=== PATIENT | male | born 1995 | race Caucasian/White ===

== ENCOUNTER 2017-12-12 16:40 | Day surgery (SDC) | payer OTHER ==
[~2017-12-12] VITALS: Ht 188 cm; Wt 109.8 kg
--- OUTSIDE RECORDS SUMMARY | 2017-12-12 16:45 | XMS REPORT ---
Author Author [employer] [facility] Medical Staff Organization [facility] Address [address], [place] [address] Phone [phone] Care Team Providers Care Insulation Worker Interior Surface Name Role Phone JUAN ROTH MD PP [phone] Summary purpose TRANSITION OF CARE AUTO GENERATION Chief Complaint and Reason for Visit Admit Diagnosis 1 PHYSICAL THERAPY NEC Problem list No authorized problems tracked for continuity of care are available for this visit. Encounters No authorized problems tracked for encounter diagnoses are available for this visit. Medications No medications recorded for this patient visit Allergies, adverse reactions, alerts No allergy information is available for this patient. Immunizations No immunizations recorded for this patient visit Relevant diagnostic tests and/or laboratory data No authorized results are available for this patient visit History of procedures Procedure Code Code Type Description Date Performed Performing Physician 04122 CPT-4 PT EVALUATION 05-30-2014 [facility] 21601 CPT-4 ELECTRIC CURRENT THERAPY 05-30-2014 [facility] 47162 CPT-4 THERAPEUTIC EXERCISES 06-01-2014 [facility] 31349 CPT-4 ELECTRIC CURRENT THERAPY 06-01-2014 [facility] Functional status No functional or cognitive status observations are available for this visit. Vital signs No authorized vital signs are available for this visit. Social history No Social History or smoking status observations were recorded for this visit. ( Unknown if ever smoked.) Treatment Plan No treatment plan text is available for this visit. Hospital discharge instructions No discharge instruction text is available for this visit.
--- OUTSIDE RECORDS SUMMARY | 2017-12-12 16:45 | XMS REPORT ---
Author Author [employer] [facility] Medical Staff Organization [facility] Address [address], [place] [address] Phone [phone] Care Team Providers Care Cable Tool Operator Name Role Phone JUAN ROTH MD PP [phone] Summary purpose TRANSITION OF CARE AUTO GENERATION [...] for this patient visit History of procedures No procedures recorded for this patient visit. Functional status No functional or cognitive status [...]
--- OUTSIDE RECORDS SUMMARY | 2017-12-12 16:45 | XMS REPORT ---
Author Author [employer] [facility] Medical Staff Organization [facility] Address [address], [place] [address] Phone [phone] Care Team Providers Care Rn Advice Name Role Phone JUAN ROTH MD PP [phone] Summary purpose TRANSITION OF CARE AUTO GENERATION [...]
[2017-12-12] MEDS ORDERED: fentaNYL INJECTION 100 MCG/2 ML AMP IVP STA (16:46)
--- OUTSIDE RECORDS SUMMARY | 2017-12-12 16:46 | XMS REPORT ---
Author Author [employer] [facility] Medical Staff Organization [facility] Address [address] [place], [place] [address] Phone [phone] Care Team Providers Care Wind Turbine Blade Repair Technician Name Role Phone JUAN ROTH MD PP [phone] Summary purpose TRANSITION OF CARE AUTO GENERATION Chief Complaint and Reason for Visit Admit Diagnosis 1 PHYSICAL THERAPY NEC Problem list No authorized problems tracked for continuity of care are available for this visit. Encounters No authorized problems tracked for encounter diagnoses are available for this visit. Medications No home medications recorded for this patient visit Allergies, adverse reactions, alerts No allergy information is available for this patient. Immunizations No immunizations recorded for this patient visit Relevant diagnostic tests and/or laboratory data No authorized results are available for this patient visit History of procedures Procedure Code Code Type Description Date Performed Performing Physician 16924 CPT-4 PT EVALUATION 01-25-2014 REMY JAVIER 33704 CPT-4 ULTRASOUND THERAPY 01-25-2014 REMY JAVIER 77478 CPT-4 ULTRASOUND THERAPY 01-30-2014 REMY JAVIER 33672 CPT-4 ULTRASOUND THERAPY 02-01-2014 REMY JAVIER 52166 CPT-4 THERAPEUTIC EXERCISES 02-06-2014 REMY JAVIER 73616 CPT-4 ULTRASOUND THERAPY 02-06-2014 REMY JAVIER Functional status No functional or cognitive status [...]
--- OUTSIDE RECORDS SUMMARY | 2017-12-12 16:46 | XMS REPORT ---
Author Author [employer] [facility] Medical Staff Organization [facility] Address [address] [place], [place] [address] Phone [phone] Care Team Providers Care Java Lead Developer Name Role Phone JUAN ROTH MD PP [phone] Summary purpose TRANSITION OF CARE AUTO GENERATION [...]
--- OUTSIDE RECORDS SUMMARY | 2017-12-12 16:46 | XMS REPORT | Clinical Summary ---
Author Author Admin, ANNETTE Organization [facility] Address Unknown Phone Unavailable Allergies, Adverse Reactions, Alerts Allergy Name Reaction Description Start Date Severity Status Provider No Known Allergies Misa Ibarra MA Conditions or Problems Problem Name Problem Code Onset Date Status Entry Date Provider Comment Standard Description Annotate Neck sprain 847.0 Active Karl Hernandez MD Neck sprain U R I 465.9 Inactive Karl Hernandez MD Acute upper respiratory infections of unspecified site Cervical spasm 728.85 Active Mg Reina DO Spasm of muscle U R I ICD-465.9 Inactive Karl Hernandez MD 03/05 Medication List Medication Instructions Start Date Stop Date Generic Name NDC Status Provider Patient Instruction ZITHROMAX 250 MG TAB 2 po today, then 1 po q days 2-5 AZITHROMYCIN 58633586642 No Longer Active Karl Hernandez MD Active ZYRTEC ALLERGY 10 MG CAPS 1 po qd CETIRIZINE HCL 89124492892 Active Karl Hernandez MD Active IBUPROFEN 800 MG TABS take 1 tab po TID for neck pain and inflammation 01/06 IBUPROFEN 68407422612 No Longer Active Karl Hernandez MD Active IBUPROFEN 800 MG TABS take 1 tab po TID for neck pain and inflammation 01/06 IBUPROFEN 800 MG TABS 643539 IBUPROFEN Inactive ZITHROMAX 250 MG TAB 2 po today, then 1 po q days 2-5 ZITHROMAX 250 MG TAB [id number] AZITHROMYCIN Inactive Vital Signs Date Name Value Unit Range Description blood pressure, diastolic 66 mm[Hg] BP reardon blood pressure, systolic 116 mm[Hg] BP sys pulse rate E&M 51 /min Heart rate temperature E&M 98.3 [degF] Body temperature weight E&M 206 [lb_av] Weight Measured blood pressure, diastolic 73 mm[Hg] BP reardon blood pressure, systolic 119 mm[Hg] BP sys pulse rate E&M 67 /min Heart rate temperature E&M 98.2 [degF] Body temperature weight E&M 210.50 [lb_av] Weight Measured blood pressure, diastolic 78 mm[Hg] BP reardon blood pressure, systolic 134 mm[Hg] BP sys height E&M 73.5 [in_us] Bdy height pulse rate E&M 62 /min Heart rate temperature E&M 97.8 [degF] Body temperature weight E&M 209 [lb_av] Weight Measured Encounters Code Encounter Date Provider Facility CPT-46528 Level 3 Est. Patient 15:20:07 CDT Mg Reina DO [facility] CPT-78998 Level 3 Est. 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
--- OUTSIDE RECORDS SUMMARY | 2017-12-12 16:46 | XMS REPORT ---
Author Author [employer] [facility] Medical Staff Organization [facility] Address [address] [place], [place] [address] Phone [phone] Care Team Providers Care Casing Blower Name Role Phone JUAN ROTH MD PP [phone] Summary purpose TRANSITION OF CARE AUTO GENERATION [...]
--- OUTSIDE RECORDS SUMMARY | 2017-12-12 16:46 | XMS REPORT ---
Author Author [facility] [employer] [facility] Medical Staff Organization [facility] Address [address] [place], [place] [address] Phone [phone] Care Team Providers Care Supervisor Telephone Information Name Role Phone JUAN ROTH MD PP [phone] Summary purpose TRANSITION OF CARE AUTO GENERATION [...] Code Type Description Date Performed Performing Physician 09361 CPT-4 PT RE-EVALUATION 07-07-2014 [facility] 65934 CPT-4 ELECTRIC CURRENT THERAPY 07-07-2014 [facility] Functional status No functional or [...]
--- OUTSIDE RECORDS SUMMARY | 2017-12-12 16:46 | XMS REPORT ---
Author Author [email or web address] [facility] Medical Staff Organization [facility] Address [address] [place], [place] [address] Phone [phone] Care Team Providers Care Commissioner Of Officials Name Role Phone JUAN ROTH MD PP [phone] Summary purpose TRANSITION OF CARE AUTO GENERATION [...] Code Type Description Date Performed Performing Physician 09195 CPT-4 PT EVALUATION 05-30-2014 [facility] 24525 CPT-4 ELECTRIC CURRENT THERAPY 05-30-2014 [facility] 71855 CPT-4 THERAPEUTIC EXERCISES 06-01-2014 [facility] 52094 CPT-4 ELECTRIC CURRENT THERAPY 06-01-2014 [facility] [...]
--- OUTSIDE RECORDS SUMMARY | 2017-12-12 16:46 | XMS REPORT | Clinical Summary ---
Author Author Admin, ANNETTE Organization [facility] Address Unknown Phone Unavailable Allergies, Adverse [...] Active Mg Reina DO Spasm of muscle Ankle sprain, left 845.00 Active Mg Reina DO Unspecified site of ankle sprain U R I ICD-465.9 Inactive Karl Hernandez MD 03/05 Medication List Medication Instructions Start Date Stop Date Generic Name [facility] Status Provider Patient Instruction ZITHROMAX 250 MG TAB 2 po today, then 1 po q days 2-5 AZITHROMYCIN 16769052459 No Longer Active Karl Hernandez MD Active ZYRTEC ALLERGY 10 MG CAPS 1 po qd CETIRIZINE HCL 13637517421 Active Karl Hernandez MD Active IBUPROFEN 800 MG TABS take 1 tab po TID for neck pain and inflammation 01/06 IBUPROFEN 88280986666 No Longer Active Karl Hernandez MD Active IBUPROFEN 800 MG TABS take 1 tab po TID for neck pain and inflammation 01/06 IBUPROFEN 800 MG TABS 069305 IBUPROFEN Inactive ZITHROMAX 250 MG TAB 2 po today, then 1 po q days 2-5 ZITHROMAX 250 MG TAB 4029604 AZITHROMYCIN Inactive Vital Signs Date Name Value Unit Range Description blood pressure, diastolic 67 mm[Hg] BP reardon blood pressure, systolic 116 mm[Hg] BP sys pulse rate E&M 61 /min Heart rate temperature E&M 97.8 [degF] Body temperature weight E&M 211 [lb_av] Weight Measured blood pressure, diastolic 66 mm[Hg] BP reardon [...] Measured Encounters Code Encounter Date Provider Facility CPT-29254 Level 3 Est. Patient 14:47:55 CDT Mg Reina [facility] CPT-60978 Level 3 Est. Patient 15:20:07 CDT Mg Reina [facility] CPT-05929 Level 3 Est. 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
--- OUTSIDE RECORDS SUMMARY | 2017-12-12 16:46 | XMS REPORT | Clinical Summary ---
Author Author Admin, ANNETTE Organization [facility] Address Unknown Phone Unavailable Allergies, Adverse Reactions, [...] Instructions Start Date Stop Date Generic Name [facility] Status Provider Patient Instruction ZITHROMAX 250 MG TAB 2 po today, then 1 po q days 2-5 AZITHROMYCIN 54295896757 No Longer Active Karl Hernandez MD Active ZYRTEC ALLERGY 10 MG CAPS 1 po qd CETIRIZINE HCL 48645606919 Active Karl Hernandez MD Active IBUPROFEN 800 MG TABS take 1 tab po TID for neck pain and inflammation 01/06 IBUPROFEN 15005805635 No Longer Active Karl Hernandez MD Active IBUPROFEN 800 MG TABS take 1 tab po TID for neck pain and inflammation 01/06 IBUPROFEN 800 MG TABS 063238 IBUPROFEN Inactive ZITHROMAX 250 MG TAB 2 po today, then 1 po q days 2-5 ZITHROMAX 250 MG TAB 9702278 AZITHROMYCIN Inactive Vital Signs Date Name Value [...] Measured Encounters Code Encounter Date Provider Facility CPT-35677 Level 3 Est. Patient 14:47:55 CDT Mg Reina [facility] CPT-46608 Level 3 Est. Patient 15:20:07 CDT Mg Reina [facility] CPT-88173 Level 3 Est. 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
--- OUTSIDE RECORDS SUMMARY | 2017-12-12 16:46 | XMS REPORT ---
Author Author [facility] Medical Staff Organization [facility] Address [address] [place], [place] [address] Phone [phone] Care Team Providers Care Interactive Media Project Manager Name Role Phone JUAN ROTH MD PP [phone] Summary purpose TRANSITION OF CARE AUTO GENERATION [...] Code Type Description Date Performed Performing Physician 45016 CPT-4 ELECTRIC CURRENT THERAPY 07-07-2014 [facility] 66394 CPT-4 PT RE-EVALUATION 07-07-2014 [facility] Functional status No functional [...]
[2017-12-12] MEDS ORDERED: fentaNYL INJECTION 100 MCG/2 ML AMP ONE ×3 (16:47→19:55)
--- OUTSIDE RECORDS SUMMARY | 2017-12-12 16:47 | XMS REPORT | Continuity of Care Document ---
Demographics x Preferred Language Unknown Marital Status Unknown Oriental Orthodox Affiliation Unknown Race Unknown Ethnic Group Unknown Author Author [facility] Organization [facility] Address Unknown Phone Unavailable Allergies There is no data. Medications There is no data. Problems Date Dx Coded Attending Type Code Diagnosis Diagnosed By 10/23/2013 [facility] 843.8 SPRAIN HIP THIGH NEC 10/23/2013 [facility] V57.1 PHYSICAL THERAPY NEC 10/29/2013 [facility] 843.8 SPRAIN HIP THIGH NEC 10/29/2013 [facility] V57.1 PHYSICAL THERAPY NEC 11/04/2013 [facility] 843.8 SPRAIN HIP THIGH NEC 11/04/2013 [facility] V57.1 PHYSICAL THERAPY NEC 02/22/2014 REMY JAVIER 726.71 ACHILLES TENDINITIS 02/22/2014 REMY JAVIER V57.1 PHYSICAL THERAPY NEC 06/22/2014 [facility] 843.8 SPRAIN HIP THIGH NEC 06/22/2014 [facility] E928.9 ACCIDENT NOS 06/22/2014 [facility] V57.1 PHYSICAL THERAPY NEC 07/10/2014 [facility] 843.8 SPRAIN HIP THIGH NEC 07/10/2014 [facility] E928.9 ACCIDENT NOS 07/10/2014 [facility] V57.1 PHYSICAL THERAPY NEC 07/23/2014 [facility] 843.8 SPRAIN HIP THIGH NEC 07/23/2014 [facility] V57.1 PHYSICAL THERAPY NEC 08/02/2014 [facility] 843.8 SPRAIN HIP THIGH NEC 08/02/2014 [facility] V57.1 PHYSICAL THERAPY NEC Procedures Code Description [place] [address] PT EVALUATION 02/22/2014 95156 ULTRASOUND THERAPY 02/22/2014 44529 THERAPEUTIC EXERCISES 02/22/2014 36910 PT EVALUATION 06/22/2014 13498 ELECTRIC CURRENT THERAPY 06/22/2014 76217 THERAPEUTIC EXERCISES 06/22/2014 65864 PT RE-EVALUATION 07/23/2014 29839 ELECTRIC CURRENT THERAPY 07/23/2014 Results There is no data. Encounters ACCT No. Visit Date/Time Discharge Status Pt. Type Provider Facility Loc./Unit Complaint [id number] 07/24/2014 00:01:00 08/02/2014 12:07:00 DIS Outpatient [facility] PT [id number] 07/07/2014 12:30:00 07/23/2014 23:59:00 DIS Outpatient [facility] PT [id number] 06/23/2014 00:01:00 07/10/2014 11:04:00 DIS Outpatient [facility] PT [id number] 05/30/2014 09:55:00 06/22/2014 23:59:00 DIS Outpatient [facility] PT [id number] 02/23/2014 00:01:00 02/23/2014 23:59:59 CLS Outpatient REMY JAVIER [facility] PT [id number] 01/25/2014 13:42:00 02/22/2014 23:59:00 DIS Outpatient REMY JAVIER [facility] PT [id number] 10/24/2013 00:01:00 11/04/2013 13:44:00 DIS Outpatient [facility] PT [id number] 10/29/2013 01:21:00 10/29/2013 02:08:00 DIS Emergency LEANDRA ANTHONY [facility] EMR [id number] 09/23/2013 00:01:00 10/23/2013 23:59:00 DIS Outpatient [facility] PT [id number] 08/31/2013 15:44:00 08/31/2013 23:59:59 CLS Outpatient [facility] PT [id number] 08/31/2013 09:53:00 08/31/2013 09:53:00 DIS Outpatient [facility] RAD [id number] 07/24/2014 00:08:54 ACT Document Registration
--- OUTSIDE RECORDS SUMMARY | 2017-12-12 16:47 | XMS REPORT | Clinical Summary ---
Author Author Admin, ANNETTE Organization [facility] Address Unknown Phone Unavailable Allergies, Adverse Reactions, Alerts Allergy Name Reaction Description Start Date Severity Status Provider No Known Allergies Ioana Ott LPN Conditions or Problems Problem Name Problem Code Onset Date Status Entry Date Provider Comment Standard Description Annotate Neck sprain 847.0 Active Karl Hernandez MD Neck sprain U R I 465.9 Inactive Karl Hernandez MD Acute upper respiratory infections of unspecified site Cervical spasm 728.85 Active Mg Reina DO Spasm of muscle Ankle sprain, left 845.00 Resolved Edd Bryan MD Unspecified site of ankle sprain Achilles tendinitis 726.71 Active Edd Bryan MD Achilles bursitis or tendinitis U R I ICD-465.9 Inactive Karl Hernandez MD 03/05 Ankle sprain, left ICD-845.00 Inactive Edd Bryan MD Medication List Medication Instructions Start Date Stop Date Generic Name [facility] Status Provider Patient Instruction DICLOFENAC SODIUM 75 MG TBEC 1 tablet by mouth twice daily PRN Pain DICLOFENAC SODIUM 89621843918 Active Edd Bryan MD Active MULTIVITAMIN GUMMIES ADULT CHEW Take one by mouth daily MULTIPLE VITAMINS-MINERALS 54837118672 Active Edd Bryan MD Active ZITHROMAX 250 MG TAB 2 po today, then 1 po q days 2-5 AZITHROMYCIN 21188519961 No Longer Active Karl Hernandez MD Active ZYRTEC ALLERGY 10 MG CAPS 1 po qd CETIRIZINE HCL 03609208585 Active Karl Hernandez MD Active IBUPROFEN 800 MG TABS take 1 tab po TID for neck pain and inflammation 01/06 IBUPROFEN 51995966776 No Longer Active Karl Hernandez MD Active IBUPROFEN 800 MG TABS take 1 tab po TID for neck pain and inflammation 01/06 IBUPROFEN 800 MG TABS 196364 IBUPROFEN Inactive ZITHROMAX 250 MG TAB 2 po today, then 1 po q days 2-5 ZITHROMAX 250 MG TAB 6077916 AZITHROMYCIN Inactive Vital Signs Date Name Value Unit Range Description blood pressure, diastolic - 8462-4 70 mm[Hg] BP reardon blood pressure, systolic - 8480-6 115 mm[Hg] BP sys pulse rate E&M - 8867-4 54 /min Heart rate temperature E&M 98.5 [degF] Body temperature weight E&M - 3141-9 219.5 [lb_av] Weight Measured blood pressure, diastolic - 8462-4 67 mm[Hg] BP reardon blood pressure, systolic - 8480-6 116 mm[Hg] BP sys pulse rate E&M - 8867-4 61 /min Heart rate temperature E&M 97.8 [degF] Body temperature weight E&M - 3141-9 211 [lb_av] Weight Measured blood pressure, diastolic - 8462-4 66 mm[Hg] BP reardon blood pressure, systolic - 8480-6 116 mm[Hg] BP sys pulse rate E&M - 8867-4 51 /min Heart rate temperature E&M 98.3 [degF] Body temperature weight E&M - 3141-9 206 [lb_av] Weight Measured blood pressure, diastolic - 8462-4 73 mm[Hg] BP reardon blood pressure, systolic - 8480-6 119 mm[Hg] BP sys pulse rate E&M - 8867-4 67 /min Heart rate temperature E&M 98.2 [degF] Body temperature weight E&M - 3141-9 210.50 [lb_av] Weight Measured Encounters Code Encounter Date Provider Facility CPT-18466 Level 3 Est. Patient 16:37:12 ANALYSIS INTERNSHIP Edd Bryan MD [facility] CPT-23053 Level 3 Est. Patient 14:47:55 CDT Mg Reina [facility] CPT-67843 Level 3 Est. Patient 15:20:07 CDT Mg Reina [facility] CPT-87827 Level 3 Est. Patient 12:53:11 ANALYSIS INTERNSHIP Karl Hernandez MD [facility]
--- OUTSIDE RECORDS SUMMARY | 2017-12-12 16:47 | XMS REPORT ---
Author Author [employer] [facility] Medical Staff Organization [facility] Address [address] [place], [place] [address] Phone [phone] Care Team Providers Care Digital Media Representative Name Role Phone JUAN ROTH MD PP [phone] Summary purpose TRANSITION OF CARE AUTO GENERATION [...] Code Type Description Date Performed Performing Physician 02335 CPT-4 PT EVALUATION 01-25-2014 REMY JAVIER 82085 CPT-4 ULTRASOUND THERAPY 01-25-2014 REMY JAVIER 76370 CPT-4 ULTRASOUND THERAPY 01-30-2014 REMY JAVIER 36920 CPT-4 ULTRASOUND THERAPY 02-01-2014 REMY JAVIER 11722 CPT-4 THERAPEUTIC EXERCISES 02-06-2014 REMY JAVIER 44622 CPT-4 ULTRASOUND THERAPY 02-06-2014 REMY JAVIER Functional [...]
--- OUTSIDE RECORDS SUMMARY | 2017-12-12 16:47 | XMS REPORT | Clinical Summary ---
Author Author Admin, ANNETTE Organization [facility] Address Unknown Phone Unavailable Allergies, Adverse Reactions, [...] Instructions Start Date Stop Date Generic Name [facility] Status Provider Patient Instruction DICLOFENAC SODIUM 75 MG TBEC 1 tablet by mouth twice daily PRN Pain DICLOFENAC SODIUM 10908743418 Active Edd Bryan MD Active MULTIVITAMIN GUMMIES ADULT CHEW Take one by mouth daily MULTIPLE VITAMINS-MINERALS 84994121735 Active Edd Bryan MD Active ZITHROMAX 250 MG TAB 2 po today, then 1 po q days 2-5 AZITHROMYCIN 82958252699 No Longer Active Karl Hernandez MD Active ZYRTEC ALLERGY 10 MG CAPS 1 po qd CETIRIZINE HCL 95086073010 Active Karl Hernandez MD Active IBUPROFEN 800 MG TABS take 1 tab po TID for neck pain and inflammation 01/06 IBUPROFEN 29928479183 No Longer Active Karl Hernandez MD Active IBUPROFEN 800 MG TABS take 1 tab po TID for neck pain and inflammation 01/06 IBUPROFEN 800 MG TABS 523247 IBUPROFEN Inactive ZITHROMAX 250 MG TAB 2 po today, then 1 po q days 2-5 ZITHROMAX 250 MG TAB 6801659 AZITHROMYCIN Inactive Vital Signs Date Name Value [...] Measured Encounters Code Encounter Date Provider Facility CPT-16077 Level 3 Est. 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 Patient 14:47:55 CDT Mg Reina [facility] CPT-86167 Level 3 Est. Patient 15:20:07 CDT Mg Reina [facility] CPT-42912 Level 3 Est. 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
[2017-12-12 16:55] LABS: HEMOGLOBIN 16.1 G/DL (13.3-17.7); MEAN PLATELET VOLUME 10.7 FL (7.4-10.4); RED BLOOD COUNT 5.14 10^6/uL (4.35-5.85); RED CELL DISTRIBUTION WIDTH 12.5 % (10.0-14.5); WHITE BLOOD COUNT 7.7 10^3/uL (4.3-11.0)
--- NOTE | 2017-12-12 17:14 | ED Lower Extremity ---
General Stated Complaint: L FEMUR FX Source: patient Exam Limitations: no limitations History of Present Illness Date Seen by Provider: Dec 12, 2017 Time Seen by Provider: 16:40 Initial Comments Here with report of left femur pain and concerns of left femur fracture. 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 He believes his leg tangled in the other player's legs. He felt a pop to his left femur. He had immediate pain. There was deformity and shortening noted. Evaluated by the team doctor and EMS and brought here for further evaluation with concerns of left femur fracture. Denies other injury. Onset: just prior to arrival (approximately 30 minutes prior to arrival) Severity: moderate, severe Pain/Injury Location: left leg Method of Injury: direct blow Modifying Factors: Improves With Immobilization; Worse With Movement; Improves With Pain Medication Allergies and Home Medications Allergies Coded Allergies: No Known Drug Allergies (Unverified , 12/12/17) Patient Home Medication List Home Medication List Reviewed: Yes Review of Systems Constitutional: see HPI; No chills, No fever EENTM: no symptoms reported Respiratory: no symptoms reported Cardiovascular: no symptoms reported Gastrointestinal: no symptoms reported Genitourinary: no symptoms reported Musculoskeletal: see HPI, joint pain, muscle pain, muscle stiffness Skin: No change in color, No lesions Psychiatric/Neurological: Denies Numbness, Denies Paresthesia, Denies Tingling Past Vfsndsw-Kyuejx-Xovavh Hx Past Med/Social Hx: Reviewed Nursing Past Med/Soc Hx Patient Social History Alcohol Use: Denies Use Recreational Drug Use: No Smoking Status: Never a Smoker Recent Foreign Travel: No Contact w/Someone Who Travel: No Past Medical History Surgeries: Yes Orthopedic, Tonsillectomy Respiratory: No Cardiac: No Neurological: No Genitourinary: No Gastrointestinal: No Musculoskeletal: Yes Psychosocial: No Family Medical History Reviewed Nursing Family Hx No Pertinent Family Hx Physical Exam Vital Signs Capillary Refill : Height, Weight, BMI Height: '" Weight: lbs. oz. kg; BMI Method: General Appearance: WD/WN, mild distress HEENT: PERRL/EOMI, pharynx normal Neck: non-tender, full range of motion, supple Cardiovascular: regular rate, rhythm, no murmur Respiratory: lungs clear, normal breath sounds Gastrointestinal: non tender, soft Hips: bilateral hip non-tender, bilateral hip normal inspection, bilateral hip normal range of motion Legs: right leg non-tender, right leg normal inspection, right leg normal range of motion; left leg pain, left leg soft tissue tenderness, left leg swelling, left leg other (needed shaft femur deformity with shortening and significant pain) Knees: bilateral knee non-tender, bilateral knee normal inspection; right knee normal range of motion; bilateral knee no evidence of injury Ankles: bilateral ankle non-tender, bilateral ankle normal inspection, bilateral ankle normal range of motion, bilateral ankle no evidence of injury Feet: bilateral foot other (distal pulses intact bilateral) Neurologic/Psychiatric: alert, normal mood/affect, oriented x 3 Skin: normal color, warm/dry Progress/Results/Core Measures Results/Orders Lab Results Laboratory Tests Test 12/12/17 16:45 Range/Units White Blood Count 7.7 4.3-11.0 10^3/uL Red Blood Count 5.14 4.35-5.85 10^6/uL Hemoglobin 16.1 13.3-17.7 G/DL Hematocrit 44 40-54 % Mean Corpuscular Volume 86 80-99 FL Mean Corpuscular Hemoglobin 31 25-34 PG Mean Corpuscular Hemoglobin Concent 37 H 32-36 G/DL Red Cell Distribution Width 12.5 10.0-14.5 % Platelet Count 233 130-400 10^3/uL Mean Platelet Volume 10.7 H 7.4-10.4 FL My Orders Orders - JUSTYNA ALEGRE MD Cbc No Diff (12/12/17 16:46) Basic Metabolic Panel (12/12/17 16:46) Liver Panel (12/12/17 16:46) Alcohol (12/12/17 16:46) Ua Culture If Indicated (12/12/17 16:46) Type And Screen (12/12/17 16:46) Chest 1 View, Ap/Pa Only (12/12/17 16:46) Pelvis (12/12/17 16:46) End Tidal Co2 (12/12/17 16:46) Monitor-Rhythm Ecg Trace Only (12/12/17 16:46) Saline Lock/Iv-Start (12/12/17 16:46) Femur, Left, 2 Views (12/12/17 16:46) Fentanyl Injection (Sublimaze Injection (12/12/17 16:46) Fentanyl Injection (Sublimaze Injection (12/12/17 16:47) Progress Progress Note : Progress Note Seen and evaluated. Type II trauma activation due to mechanism and long bone injury. IV by EMS. EMS did give 100 g of fentanyl and 4 mg of Zofran for pain. Patient on long spine board. Transferred to bed. Rolled off the long spine board. ATLS exam performed. Distal pulses intact to both feet and equal and strong. Concerns about midshaft femur fracture. After radiological assessment verifies midshaft femur fracture. Patient placed in Hare traction splint which greatly reduced his pain and spasms associated with a fracture. Distal pulses remain intact after traction splint in place. Patient did receive another 100 g of fentanyl for pain. Labs, chest x-ray and pelvis x- ray performed. Dr. Hanks in the emergency department evaluating patient denies 1655. 1720: Patient to go to OR for femur fracture repair. Family informed the patient's bedside and agree with plan. Diagnostic Imaging Diagonstic Imaging: Xray Plain Films/CT/US/NM/MRI: chest Comments No acute findings Reviewed: Reviewed by Me Diagonstic Imaging: Xray Plain Films/CT/US/NM/MRI: pelvis Comments No acute fracture of the pelvis Reviewed: Reviewed by Me Diagonstic Imaging: Xray Plain Films/CT/US/NM/MRI: femur Comments Mid shaft femur fracture with displacement and secondary fragment Reviewed: Reviewed by Me Departure Communication (Admissions) Time/Spoke to Admitting Phy: 17:00 Impression Primary Impression: Left femoral shaft fracture Qualified Codes: S72.322A - Displaced transverse fracture of shaft of left femur, initial encounter for closed fracture Disposition: ADMITTED INPATIENT Condition: Stable Admissions Decision to Admit Reason: Admit from ER (Trauma) Decision to Admit/Date: Dec 12, 2017 Time/Decision to Admit Time: 17:00 JUSTYNA ALEGRE MD Dec 12, 2017 17:14
[2017-12-12 17:15] LABS: ALANINE AMINOTRANSFERASE 41 U/L (0-55); ALBUMIN 4.8 GM/DL (3.2-4.5); ALKALINE PHOSPHATASE 84 U/L (40-136); BILIRUBIN,DIRECT 0.3 MG/DL (0.0-0.3); BILIRUBIN,INDIRECT 0.4 MG/DL; BILIRUBIN,TOTAL 0.7 MG/DL (0.1-1.0); BUN/CREATININE RATIO 13; CALCIUM 9.9 MG/DL (8.5-10.1); CARBON DIOXIDE 22 MMOL/L (21-32); CHLORIDE 105 MMOL/L (98-107); CREATININE SERUM 1.51 MG/DL (0.60-1.30); GFR ESTIMATED 59; GLUCOSE 111 MG/DL (70-105); POTASSIUM 3.4 MMOL/L (3.6-5.0); SODIUM 142 MMOL/L (135-145); TOTAL PROTEIN 7.3 GM/DL (6.4-8.2)
--- NOTE | 2017-12-12 17:27 | Diagnostic Imaging Report ---
INDICATION: Trauma. EXAMINATION: Single view of the chest was obtained. FINDINGS: The heart size, mediastinal configuration, and pulmonary vascularity are within normal limits. There is no pleural effusion, pneumothorax, or pneumonia. The osseous structures are unremarkable. IMPRESSION: No acute cardiopulmonary abnormality. Dictated by: Dictated on workstation # [id number]
--- NOTE | 2017-12-12 17:28 | Diagnostic Imaging Report ---
INDICATION: Trauma. EXAMINATION: Four views of the left femur were obtained. FINDINGS: There is a comminuted fracture of the mid left femoral diaphysis. Fracture fragments are slightly displaced. Soft tissues are otherwise unremarkable. IMPRESSION: Comminuted fracture of the mid left femoral diaphysis. Dictated by: Dictated on workstation # [id number]
[2017-12-12] MEDS ORDERED: MIDAZOLAM 2 MG/2 ML (VERSED) VIAL ONE (17:35)
[2017-12-12] MEDS ORDERED: LIDOCAINE PF 2% 5 ML (XYLOCAINE) VIAL ONE (17:35)
[2017-12-12] MEDS ORDERED: DEXAMETHASONE 10 MG/ML (DECADRON) 1 ML VIAL ONE (17:35)
[2017-12-12] MEDS ORDERED: ONDANSETRON 4 MG/2 ML (SDV) Z0FRAN ONE (17:35)
[2017-12-12] MEDS ORDERED: proPOfol 200 MG/20 ML (DIPRIVAN) VIAL IV ONE ×2 (17:35→19:39)
[2017-12-12] MEDS ORDERED: SEVOFLURANE (ULTANE) 15 ML INHAL SOLN ONE ×10 (17:37→20:18)
--- NOTE | 2017-12-12 17:42 | Progress Note-Pre Operative ---
Pre-Operative Progress Note H&P Reviewed The H&P was reviewed, patient examined and no changes noted. Date Seen by Provider: Dec 12, 2017 Time Seen by Provider: 17:41 Date H&P Reviewed: Dec 12, 2017 Time H&P Reviewed: 17:41 Pre-Operative Diagnosis: left femur shaft fracture, closed, displaced DELORIS HSU MD Dec 12, 2017 17:41
--- NOTE | 2017-12-12 17:43 | Progress Note-Post Operative ---
Post-Operative Progess Note Surgeon (s)/Bulk Sugar Handler (s) Surgeon DELORIS HSU MD Bulk Sugar Handler: Damaso Agarwal Pre-Operative Diagnosis left femur shaft fracture, closed, displaced Post-Operative Diagnosis left femur shaft fracture, closed, displaced Procedure & Operative Findings Date of Procedure 12/12/17 Procedure Performed/Findings left femur intramedullary nail Anesthesia Type GETA Estimated Blood Loss Estimated blood loss (mL): 300 ml Specimens/Packing Specimens Removed none Packing: none DELORIS HSU MD Dec 12, 2017 17:43
--- OUTSIDE RECORDS SUMMARY | 2017-12-12 18:08 | XMS REPORT | Continuity of Care Document ---
Demographics x Preferred Language Unknown Marital Status Unknown Evangelical Affiliation Unknown Race Unknown Ethnic Group Unknown Author Author [facility] Organization [facility] Address Unknown Phone Unavailable Allergies There is [...] DELORIS HSU V57.1 PHYSICAL THERAPY NEC 07/23/2014 DELORIS HSU 843.8 SPRAIN HIP THIGH NEC 07/23/2014 DELORIS HSU V57.1 PHYSICAL THERAPY NEC 08/02/2014 DELORIS HSU 843.8 SPRAIN HIP THIGH NEC 08/02/2014 DELORIS HSU V57.1 PHYSICAL THERAPY NEC Procedures Code [place] [address] PT EVALUATION 02/22/2014 55219 ULTRASOUND THERAPY 02/22/2014 37130 THERAPEUTIC EXERCISES 02/22/2014 45222 PT EVALUATION 06/22/2014 17157 ELECTRIC CURRENT THERAPY 06/22/2014 95131 THERAPEUTIC EXERCISES 06/22/2014 58106 PT RE-EVALUATION 07/23/2014 03330 ELECTRIC CURRENT THERAPY 07/23/2014 Results There is no data. Encounters ACCT No. Visit Date/Time Discharge Status Pt. Type Provider Facility Loc./Unit Complaint [id number] 07/24/2014 00:01:00 08/02/2014 12:07:00 DIS Outpatient DELORIS HSU [facility] PT [id number] 07/07/2014 12:30:00 07/23/2014 23:59:00 DIS Outpatient DELORIS HSU [facility] PT [id number] 06/23/2014 00:01:00 07/10/2014 11:04:00 DIS Outpatient DELORIS HSU [facility] PT [id number] 05/30/2014 09:55:00 06/22/2014 23:59:00 DIS Outpatient DELORIS HSU [facility] PT [id number] 02/23/2014 00:01:00 02/23/2014 23:59:59 CLS Outpatient REMY JAVIER [facility] PT [id number] 01/25/2014 13:42:00 02/22/2014 23:59:00 DIS Outpatient REMY JAVIER [facility] PT [id number] 10/24/2013 00:01:00 11/04/2013 13:44:00 DIS Outpatient DELORIS HSU [facility] PT [id number] 10/29/2013 01:21:00 10/29/2013 02:08:00 DIS Emergency LEANDRA ANTHONY [facility] EMR [id number] 09/23/2013 00:01:00 10/23/2013 23:59:00 DIS Outpatient DELORIS HSU [facility] PT [id number] 08/31/2013 15:44:00 08/31/2013 23:59:59 CLS Outpatient DELORIS HSU [facility] PT [id number] 08/31/2013 09:53:00 08/31/2013 09:53:00 DIS Outpatient DELORIS HSU [facility] RAD [id number] 07/24/2014 00:08:54 ACT Document Registration
[2017-12-12] MEDS: LACTATED RINGERS 1,000 ML IV PRN ×3 (18:09→21:30)
[2017-12-12] MEDS ORDERED: ceFAZolin 1,000 MG/10 ML (ANCEF) VIAL ONE (18:35)
[2017-12-12] MEDS ORDERED: BUPIVACAINE 0.5% 30 ML (SENSORCAINE) VIAL ONE ×2 (18:35→21:22)
--- NOTE | 2017-12-12 18:54 | Diagnostic Imaging Report ---
INDICATION: Trauma. EXAMINATION: Pelvis. FINDINGS: Examination of the pelvis in the supine projection fails to reveal evidence of fracture, dislocation or other osseous abnormality. IMPRESSION: Negative pelvis. Dictated by: Dictated on workstation # [id number]
[2017-12-12] MEDS ORDERED: MEPERIDINE (DEMEROL) INJ 50 MG/ML ONE ×2 (19:40→21:03)
[2017-12-12] MEDS ORDERED: morphine INJ 10 MG/ML 1ML (SYR OR VIAL) ONE (19:41)
[2017-12-12] MEDS ORDERED: KETOROLAC 30 MG/ML VIAL ONE (19:41)
[2017-12-12] MEDS ORDERED: PROMETHAZINE INJ 25 MG/ML (PHENERGAN) AMP ONE (19:41)
--- NOTE | 2017-12-12 19:41 | HISTORY AND PHYSICAL ---
DATE OF SERVICE: REASON FOR ADMISSION: Left femur shaft fracture, closed, displaced. 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 He was engaged with another player and fell. He feels that he was struck on the lateral aspect of his thigh. He reports no antecedent pain. He presented to the Emergency Department where he was found to have a femur fracture. He denies paresthesias. ALLERGIES: No known drug allergies. PAST MEDICAL HISTORY: Denies. ALLERGIES: Denies. PAST SURGICAL HISTORY: Tonsillectomy. PHYSICAL EXAMINATION: GENERAL: The patient is a well-developed, well-nourished, in no acute distress. HEENT: Normocephalic, atraumatic. Pupils are equal, round and reactive to light. Oropharynx is clear. NECK: Supple, no lymphadenopathy. LUNGS: Clear to auscultation bilaterally. HEART: Regular rate and rhythm. ABDOMEN: Soft, nontender, nondistended. EXTREMITIES: The left lower extremity is in traction. No skin lesions are noted. He has intact dorsiflexion and plantarflexion of the toes and the ankle. Pulses are symmetric. Sensation is intact to light touch throughout. Evaluation at the time of his injury, his thigh was shortened compared to the contralateral side. Radiographs reveal a midshaft left femur fracture with a butterfly fragment. No pathologic lesions are noted. No fractures are noted in the pelvis or proximal femur. IMPRESSION: Closed displaced left femur shaft fracture. PLAN: Intramedullary nail, left femur. We discussed risks, benefits, options, ramifications and recovery with the patient and his parents. They understand and wished to proceed. Job ID: [id number] DocumentID: [id number] Dictated Date: 12/12/2017 17:40:44 Digital Sales Manager Date: 12/12/2017 19:40:47 Dictated By: DELORIS HSU MD
[2017-12-12] MEDS ORDERED: ONDANSETRON 4 MG/2 ML (SDV) Z0FRAN IVP PRN ×2 (20:30→21:30)
[2017-12-12] MEDS ORDERED: morphine PCA 100 MG/100 ML BAG IV PRN (20:30)
[2017-12-12] MEDS ORDERED: ACETAMINOPHEN 325 MG TABLET PO PRN (20:30)
[2017-12-12] MEDS ORDERED: diphenhydrAMINE 50 MG/ML INJ (BENADRYL) IVP PRN (20:30)
--- NOTE | 2017-12-12 20:41 | Diagnostic Imaging Report ---
INDICATION: Fracture. FINDINGS: Multiple intraoperative fluoroscopic images were obtained during open reduction internal fixation of a left femur fracture. Intramedullary shaheed was placed. IMPRESSION: Intraoperative fluoroscopy during left femur pinning, as described. Dictated by: Dictated on workstation # [id number]
[2017-12-12] MEDS ORDERED: morphine INJ 10 MG/ML 1ML (SYR OR VIAL) IVP ONE (21:30)
[2017-12-12] MEDS ORDERED: MEPERIDINE (DEMEROL) INJ 50 MG/ML IVP ONE (21:30)
--- NOTE | 2017-12-12 21:56 | OPERATIVE REPORT ---
DATE OF SERVICE: 12/12/2017 PREOPERATIVE DIAGNOSIS: Left femur shaft fracture, closed, displaced. POSTOPERATIVE DIAGNOSIS: Left femur shaft fracture, closed, displaced. PROCEDURE: Left femur intramedullary nail. SURGEON: Augustus Hsu MD ACTUARIAL INTERNSHIP: BETTE Sams, who assisted throughout the procedure in closing the incisions, help with positioning and retraction throughout the procedure. ANESTHESIA: General endotracheal by Jennifer Arboleda CRNA. ESTIMATED BLOOD LOSS: 300 mL. DRAINS: None. COMPLICATIONS: None. POSTOPERATIVE PLAN: Toe touch weightbearing, left lower extremity. MATERIALS: Synthes 420 x 11 mm shaheed statically locked proximally and distally. 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 He was taken urgently to the operating room for a planned intramedullary nail. DESCRIPTION OF PROCEDURE: After risks and benefits of the procedure were discussed and questions were answered, an informed consent was signed and placed on the chart. The operative site was confirmed in the preoperative holding area initialed by the surgeon. The patient was then transported to the operating room and after adequate levels of general endotracheal anesthetic were obtained, the patient was carefully transferred to the fracture table. Gentle longitudinal traction was applied. Fluoroscopy in the AP and lateral planes revealed well-reduced fracture. The left lower extremity was then prepped and draped in the usual sterile fashion. A longitudinal incision was made from the greater trochanter extending proximally. Midline soft tissues were sharply dissected. The piriformis fossa was palpated and a starting awl was placed. Fluoroscopy in the AP and lateral planes revealed well-placed awl. The guidewire was then passed across the fracture site and distally, this was confirmed on fluoroscopy in the AP and lateral planes. Reaming was then commenced up to a 12 reamer. A 420 mm Synthes shaheed was placed and fluoroscopy revealed excellent placement of the shaheed and well-reduced fracture. Two stab incisions were made proximally for the proximal locking screws, which were well positioned. Distally using the freehand technique through 2 stab incisions, the distal locking screws were placed again in excellent position with good purchase. Fluoroscopy in the AP and lateral planes revealed well-placed hardware with a well-reduced fracture. The wounds were copiously irrigated. #1 Vicryl was used to close the IT band proximally. 0 Vicryl was used for deep subcutaneous tissue. 2-0 Vicryl was used in the superficial skin and subcutaneous tissue and juliocesar were used on the skin. The incision was infiltrated with plain Marcaine. A soft dressing was applied and a femoral nerve block was then placed for postoperative pain control and the patient was transported to the recovery room awake and in stable condition. Job ID: [id number] DocumentID: [id number] Dictated Date: 12/12/2017 20:56:52 Flight Controls Engineer Date: 12/12/2017 21:56:03 Dictated By: AUGUSTUS HSU MD
[2017-12-12 22:10] VITALS: BP 140/64
[2017-12-13] VITALS: BP 125/75
[2017-12-13] MEDS: oxyCODONE/APAP 5/325MG (PERCOCET 5) TABLET PO PRN ×3 (01:41→14:14)
[2017-12-13 04:00] VITALS: BP 121/65
[2017-12-13 04:24] LABS: HEMOGLOBIN 13.6 G/DL (13.3-17.7)
[2017-12-13 08:00] VITALS: BP 132/69
[2017-12-13] MEDS ORDERED: FLU QUADRIvalent (5+ YOA) 2018-2019 (AFLURIA) 0.5 ML IM ONE (08:15)
[2017-12-13] MEDS ORDERED: OXYC1TAB87 PO (10:11)
[2017-12-13] MEDS ORDERED: ceFAZolin INJECTION 1,000 MG in NS (IVPB) 50 ML IV ONE (10:15)
[2017-12-13] MEDS ORDERED: morphine INJ 4 MG/ML 1 ML (VIAL/SYRINGE) IVP PRN (10:15)
--- NOTE | 2017-12-13 10:16 | Progress Note-Standard ---
Standard Progress Note Progress Notes/Assess & Plan Date Seen by a Provider: Dec 13, 2017 Time Seen by a Provider: 10:14 Progress/Assessment & Plan no complaints Vital Signs Date Time Temp Pulse Resp B/P (MAP) Pulse Ox O2 Delivery O2 Flow Rate FiO2 12/13/17 08:46 18 12/13/17 04:00 98.6 71 18 121/65 (83) 96 Room Air 12/13/17 00:00 98.5 87 20 125/75 (92) 99 Room Air 12/12/17 22:10 100.2 84 12 140/64 (89) 95 Room Air 12/12/17 22:10 Room Air 12/12/17 18:12 86 16 140/88 (105) 98 Room Air 12/12/17 16:40 97.8 92 14 156/92 (113) 99 Room Air I & O 12/13/17 07:00 Intake Total 1250 ml Output Total 1350 ml Balance -100 ml Laboratory Tests Test 12/12/17 16:45 12/13/17 03:57 Range/Units White Blood Count 7.7 4.3-11.0 10^3/uL Red Blood Count 5.14 4.35-5.85 10^6/uL Hemoglobin 16.1 13.6 13.3-17.7 G/DL Hematocrit 44 39 L 40-54 % Mean Corpuscular Volume 86 80-99 FL Mean Corpuscular Hemoglobin 31 25-34 PG Mean Corpuscular Hemoglobin Concent 37 H 32-36 G/DL Red Cell Distribution Width 12.5 10.0-14.5 % Platelet Count 233 130-400 10^3/uL Mean Platelet Volume 10.7 H 7.4-10.4 FL Sodium Level 142 135-145 MMOL/L Potassium Level 3.4 L 3.6-5.0 MMOL/L Chloride Level 105 98-107 MMOL/L Carbon Dioxide Level 22 21-32 MMOL/L Anion Gap 15 H 5-14 MMOL/L Blood Urea Nitrogen 20 H 7-18 MG/DL Creatinine 1.51 H 0.60-1.30 MG/DL Estimat Glomerular Filtration Rate 59 BUN/Creatinine Ratio 13 Glucose Level 111 H 70-105 MG/DL Calcium Level 9.9 8.5-10.1 MG/DL Total Bilirubin 0.7 0.1-1.0 MG/DL Direct Bilirubin 0.3 0.0-0.3 MG/DL Indirect Bilirubin 0.4 MG/DL Aspartate Amino Transf (AST/SGOT) 36 H 5-34 U/L Alanine Aminotransferase (ALT/SGPT) 41 0-55 U/L Alkaline Phosphatase 84 40-136 U/L Total Protein 7.3 6.4-8.2 GM/DL Albumin 4.8 H 3.2-4.5 GM/DL Serum Alcohol < 10 <10 MG/DL LLE--dressing intact. sensation intact distally with equal dp pulse and brisk cap refill. Intact DF and PF of toes and ankle s/p L femur IM shaheed ok to DC home later today if pain controlled and able to crutch ambulate Final Diagnosis left femur fracture diaphysis, closed, displaced DELORIS HSU MD Dec 13, 2017 10:16
--- NOTE | 2017-12-13 11:58 | Physical Therapy Evaluation ---
PT Evaluation-General Medical Diagnosis Admission Date Medical Diagnosis: left femur IM shaheed Onset Date: Dec 12, 2017 Therapy Diagnosis Therapy Diagnosis: impaired mobility, strength, endurance, ROM Height/Weight Height (Feet): 6 Height (Inches): 2.00 Weight (Pounds): 242 Weight (Ounces): 1.0 Precautions Precautions/Isolations: Standard Precautions Weight Bear Status Right Lower Extremity: Right Full Weight Bearing Left Lower Extremity: Left Touch Toe Bearing Referral Physician: Damaso Agarwal Reason for Referral: Evaluation/Treatment Medical History Additional Medical History tonsillectomy Reviewed History: Yes Social History Home: [facility] Current Living Status: Other Family Entry Into Home: Stairs Without Railing PT Steps Into Home: 2 Prior/Core FIM Prior Level of Function Functional [place] Measure 0=Not Assessed/NA 4=Minimal Assistance 1=Total Assistance 5=Supervision or Setup 2=Maximal Assistance 6=Modified [place] 3=Moderate Assistance 7=Complete IndependenceIRFPAI Quality Coding Scale 6 Independent with activity with or without an assistive device 5 Patient requires set up or clean up by helper. Patient completes activity by themselves 4 Supervision or touching assist (CGA). [place] provide cues , steadying assist 3 The helper provides less than half the effort to complete the activity 2 The helper provides more than half the effort to complete the activity 1 Dependent. The helper does all the effort to complete an activity 7 Patient refused to complete or attempt activity 9 The patient did not perform the activity before the current illness or injury 88 Not attempted due to Medical conditions or safety concerns Bed Mobility: 7 Transfers (B,C,W/C) (FIM): 7 Gait: 7 PT Evaluation-Current Subjective Patient in bed pre tx, agrees to PT, no complaints of pain, patient states his leg is still very numb. Pt/Family Goals "to get walking with the crutches" Objective Patient Orientation: Person, Place, Situation Attachments: IV ROM/Strength ROM Lower Extremities WNL right LE, LLE not tested Strength Lower Extremities NT Neuromuscular (Tone, Coordination, Reflexes) NT Sensory Vision: Functional Hearing: Functional Sensation Right Lower Extremit: Intact Sensation Left Lower Extremity: Impaired Sensation Lower Extremities Patient has numbness in his left thigh and calf Transfers Functional [place] Measure 0=Not Assessed/NA 4=Minimal Assistance 1=Total Assistance 5=Supervision or Setup 2=Maximal Assistance 6=Modified [place] 3=Moderate Assistance 7=Complete [place] Transfers (B, C, W/C) (FIM): 4 Scootin Rollin Supine to/from Sit: 4 Sit to/from Stand: 4 supine to sit min assist with left leg, sit to stand CGA. Patient needs cues for positioning and safety. Gait Mode of Locomotion: Walk Anticipated Mode of Locomotion: Walk Gait (FIM): 1 Distance: 20' Gait Level of Assist: 4 Gait Persons Needed: 1 Gait Assistive Device: Crutches Comments/Gait Description Patient ambulated 20' with axillary crutches with CGA. He cannot lift his left leg and his toes partially drags across the floor but he is compliant with his weight bearing status. Patient started getting light headed after 10 feet and had to turn back. Balance Sitting Static: Normal Sitting Dynamic: Normal Standing Static: Good Standing Dynamic: Good Treatment HEP (AP, LAQ, HS, QS) Assessment/Needs Patient has impaired mobility, strength, endurance, ROM. He has numbness in left leg and very little AROM, he cannot perform a LAQ yet. Patient may be discharging home today but it is unsure yet. Rehab Potential: Good PT Short Term Goals Short Term Goals Time Frame: Dec 20, 2017 Transfers (B,C,W/C) (FIM): 5 Gait (FIM): 2 Gait Distance Comment: 100' Gait Level of Assist: 5 Gait Assistive Device: Crutches PT Plan Problem List Problem List: Activity Tolerance, Functional Strength, Safety, Balance, Gait, Transfer, Bed Mobility, ROM Treatment/Plan Treatment Plan: Continue Plan of Care Treatment Plan: Bed Mobility, Education, Functional Activity Brett, Functional Strength, Gait, Safety, Therapeutic Exercise, Transfers Treatment Duration: Dec 20, 2017 Frequency: 6 times per week Estimated Hrs Per Day: .25 hour per day (15-30') Patient and/or Family Agrees t: Yes Safety Risks/Education Patient Education: Gait Training, Transfer Techniques, Reviewed Precautions, Correct Positioning, Safety Issues Teaching Recipient: Patient Teaching Methods: Demonstration, Discussion Response to Teaching: Reinforcement Needed Patient not able to perform a step today but PT discussed how to do it with him. Discharge Recommendations Plan Patient will perform bed mobility and transfer training, balance and endurance training, functional strengthening, stair training, gait training, and education to improve functional mobility and independence at home. Therapy D/C Recommendations: Home w/ Family Support Time/GCodes Time In: 1130 Time Out: 1148 Total Billed Treatment Time: 18 Total Billed Treatment 1 visit EVL 18' VALERY CHAVEZ PT Dec 13, 2017 11:58
[2017-12-13 12:00] VITALS: BP 128/65
--- NOTE | 2017-12-13 14:20 | Anesthesia-General Post-Op ---
General Patient Condition Mental Status/LOC: Same as Preop Cardiovascular: Satisfactory Nausea/Vomiting: Absent Respiratory: Satisfactory Pain: Controlled Complications: Absent Post Op Complications Complications None Follow Up Care/Instructions Patient Instructions None needed. Anesthesia/Patient Condition Patient Condition Patient is doing well, stable vital signs, no apparent adverse anesthesia problems. No complications reported per nursing. Patient states pain is relieved by Percocet, and that what pain he has is located in the left hip incision. I continue to caution patient that he may have some quad weakness due to Femoral N block, so to be careful when ambulating. Family in the room with patient. He denies other questions or concerns. PETERSON CARREON CRNA Dec 13, 2017 14:20
[2017-12-13 16:20] VITALS: BP 127/57
[2017-12-13 18:46] VITALS: BP 127/57
--- NOTE | 2017-12-14 00:39 | DISCHARGE SUMMARY ---
DATE OF SERVICE: DIAGNOSIS: Left femur fracture. PROCEDURES: Intramedullary nail, left femur. 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 He underwent an intramedullary nailing of the femur at the time of admission. Postoperatively, he was doing well. He had had a femoral nerve block placed, but had intact sensation distally with symmetric pulses and intact dorsiflexion and plantarflexion of the toes. His dressings were clean and dry. He had cleared physical therapy with toe touch weightbearing, left lower extremity. CONDITION AT DISCHARGE: Good. DISCHARGE DIET: Regular. FOLLOWUP: In 2 weeks with x-rays of the left femur on arrival. ACTIVITIES: Toe touch weightbearing, left lower extremity. DISCHARGE MEDICATIONS: Percocet as needed for pain. Job ID: [id number] DocumentID: [id number] Dictated Date: 12/13/2017 10:09:12 Custodial Manager Date: 12/14/2017 00:38:24 Dictated By: DELORIS HSU MD
== END 2017-12-13 18:46 | disposition home or self-care (01) ==
LOC: ER 16:42 → SDC 18:03 → 4TH 22:10 → SDC 12-13 18:46
PROVIDERS: ATTEND Orthopaedic Surgery
DX: S72.352A Displaced comminuted fracture of shaft of left femur, initial encounter for closed fracture (principal); W03.XXXA Other fall on same level due to collision with another person, initial encounter; Y92.321 Football field as the place of occurrence of the external cause; Y93.61 Activity, american tackle football; Y99.8 Other external cause status
CPT/HCPCS: 36415; 71045; 72170; 73552; 80048; 80076; 80320; 85014; 85018; 85027; 86850; 86900; 86901; 93041; 94664